=== PATIENT | male | born 1950 | race Caucasian/White ===

== ENCOUNTER 2020-04-06 10:14 | Outpatient (CLI) | payer MEDICARE, SELFPAY ==
--- NOTE | ~2020-04-06 | CT_ITS ---
EXAMINATION: CT abdomen pelvis w con EXAM DATE: 04/06/2020 10:48 INDICATION: Prostate cancer. Elevated PSA. TECHNIQUE: Spiral CT of the abdomen and pelvis was performed following intravenous injection of 100 m L Omnipaque 350. Axial, coronal and sagittal images were reviewed. The dose-length product (DLP) fo r this examination was 721.72 mGy-cm. The exposure was tailored according to patient size (auto mA e xposure control), and iterative reconstruction (ASIR) was used as additional dose reduction technique . There is no prior study for comparison. FINDINGS: The liver, spleen, adrenal glands and pancreas are unremarkable. Gallbladder is unremarkab le. No biliary obstruction. Chronically severely atrophic nonfunctioning right kidney. The left kid alfredo enhances normally and is without hydronephrosis. The prostate is unremarkable. Some diffuse johanna dder wall thickening, could indicate chronic cystitis. Acute cystitis not excludable. There is no re troperitoneal or pelvic lymphadenopathy. There is mild to moderate scattered arteriosclerotic disea se. Tiny umbilical fat-containing hernia. Small right inguinal fat-containing hernia. The appendix is normal. The stomach and small bowel are unremarkable. There is expected amount of c olonic stool. There is moderate sigmoid predominant colonic diverticulosis. There is no adjacent inf lammatory change to suggest diverticulitis. No free intraperitoneal gas. The heart is normal in si ze. There are no pericardial or pleural effusions. The lung bases are unremarkable. There are no o steoblastic or osteolytic lesions identified. IMPRESSION: 1. No evidence of metastatic disease. 2. Moderate sigmoid diverticulosis. Reviewed, dictated and finalized at location A.
[2020-04-06 10:41] LABS: Estimated Glomerular Filt Rate 60
== END 2020-04-06 10:15 | disposition home or self-care (01) ==
LOC: ANHIMG 10:22
PROVIDERS: PCP Family Medicine; Visit Provider Urology
DX: C61 Malignant neoplasm of prostate (principal); K57.30 Diverticulosis of large intestine without perforation or abscess without bleeding
CPT/HCPCS: 36415; 74177; Q9967

== ENCOUNTER 2020-05-22 11:01 | Outpatient (CLI) | payer MEDICARE, SELFPAY ==
--- NOTE | 2020-05-22 11:04 | ECG_ITS ---
Measurements Intervals [place] Rate: 53 P: 17 IA: 164 QRS: 13 QRSD: 94 T: 78 QT: 427 QTc: 404 Interpretive Statements SINUS BRADYCARDIA EXTENSIVE ANTERIOR MYOCARDIAL INFARCTION, PROBABLY RECENT ABNORMAL ECG Electronically Signed On 05-22-2020 11:21:15 CDT by Krishan Canales D.O.
== END 2020-05-22 11:02 | disposition home or self-care (01) ==
LOC: ANHSURGERY 11:04
PROVIDERS: PCP Family Medicine; Visit Provider Urology
DX: Z01.818 Encounter for other preprocedural examination (principal); C61 Malignant neoplasm of prostate; I10 Essential (primary) hypertension; R94.31 Abnormal electrocardiogram [ECG] [EKG]
CPT/HCPCS: 87086; 93005

== ENCOUNTER 2020-05-27 06:25 | Outpatient (CLI) | payer MEDICARE, SELFPAY ==
[2020-05-27 17:27] LABS: SARS-CoV-2 RNA PCR Negative
== END 2020-05-27 06:26 | disposition home or self-care (01) ==
LOC: ANHCOVIDDT 06:25
PROVIDERS: PCP Family Medicine; Visit Provider Urology
DX: Z01.812 Encounter for preprocedural laboratory examination (principal); Z11.59 Encounter for screening for other viral diseases
CPT/HCPCS: 87635; C9803; U0003

== ENCOUNTER 2020-05-30 02:32 | Day surgery (SDC) | payer MEDICARE, SELFPAY ==
[2020-05-19 16:18] VITALS: BMI 29.7
--- NOTE | 2020-05-30 11:25 | WPDHPUPDATE1 ---
History and Physical Update Update Date/Time: 05/30/20 11:25 History and Physical has been reviewed, including an updated exam of the patient. There are NO changes in the patient's condition. Risks, benefits, and alternatives have been discussed and questions answered. Patient agrees to proceed with procedure.
[2020-05-30] MEDS: LACTATED RINGERS 1,000 ML 30 ML IV CONT (12:50)
[2020-05-30 13:10] VITALS: BP 120/63; PULSE 52; RESP 20; TEMP 37; O2SAT 94
--- NOTE | 2020-05-30 13:16 | WPDANESEPPF ---
Anes - Initial Pre Proc Eval Procedure: Operation Date: 05/30/20 14:15 Proposed Procedures p Insertion SpaceOAR Hydrogel System - Morales Maynard MD Date/Time: 05/30/20 13:16 Surgeon: Morales Maynard MD Pre Op Diagnosis: prostate CA Patient Data Age: 69 Gender: M Height: 6 ft 1 in Weight: 91.4 kg Last Vital Signs Temp 37.0 C 05/30/20 13:10 Pulse 52 L 05/30/20 13:10 Resp 20 05/30/20 13:10 BP 120/63 05/30/20 13:10 Pulse Ox 94 05/30/20 13:10 Allergies Allergy/AdvReac Type Severity Reaction Status Date / Time No Known Allergies Allergy Unverified 05/30/20 12:39 Home Medications Medication Instructions Recorded Confirmed Type folic acid 1 mg tablet 1 mg PO DAILY #90 tablet 10/27/19 05/19/20 Rx atorvastatin 40 mg tablet 40 mg PO DAILY #90 tablet 03/09/20 05/19/20 Rx clopidogrel 75 mg tablet 75 mg PO DAILY #90 tablet 03/09/20 05/30/20 Rx isosorbide mononitrate 30 mg 30 mg PO DAILY #90 tablet 03/09/20 05/30/20 Rx tablet,extended release 24 hr metoprolol tartrate 100 mg tablet 100 mg PO BID #180 tablet 03/09/20 05/30/20 Rx pantoprazole 40 mg tablet,delayed 40 mg PO DAILY #90 tablet 03/09/20 05/19/20 Rx release ramipril 10 mg capsule 10 mg PO BID #180 cap 03/09/20 05/19/20 Rx ascorbate calcium (vitamin C) 500 mg PO DAILY 05/19/20 05/19/20 History aspirin [Adult Low Dose Aspirin] 81 mg PO DAILY 05/19/20 05/30/20 History cholecalciferol (vitamin D3) 50 mcg PO DAILY 05/19/20 05/19/20 History cyanocobalamin (vitamin B-12) 500 mcg PO DAILY 05/19/20 05/19/20 History Patient hx anesthesia problems: none Family hx anesthesia problems: none PMFSH Past Medical History Medical History CVA (cerebral vascular accident) Lumbar back pain with radiculopathy affecting left lower extremity Surgical History Surgical History Stented coronary artery Family History Family History Mother Family history of chronic obstructive pulmonary disease, Onset Age: 72 Social History Social History Smoking status: Heavy tobacco smoker Alcohol intake: current Anes - Eval Final PreProcedure Day of Procedure 05/30/20 13:16 Patient weight: overweight Heart: regular rate and rhythm Lungs: decreased breath sounds Airway: Mallampati scale class II Neurological: alert and oriented Last oral intake: >/= 8 hours ASA classification: III Emergent: no Anesthetic plan: proceed Anesthesia type and monitoring: general GIVS and standard monitoring Informed Consent: The patient's anesthetic plan and its attendant risks and benefits were discussed with the patient/family/POA. Questions were solicited and answers provided to the satisfaction of the patient/family/POA.
[2020-05-30] MEDS: ceFAZolin 2 GM/D5W 50 ML 2 GM/50 ML BAG IVPB (13:52)
--- NOTE | 2020-05-30 14:16 | PM.PROC ---
Procedure Note - Detailed Date of procedure: 05/30/20 Pre-op diagnosis: prostate CA Post-op diagnosis: same Procedure performed: Space oar Hydrogel placement with transrectal ultrasound guidance Description of procedure: Patient was taken the operative suite and correctly identified. Once anesthesia was obtained was placed in dorsal lithotomy position prepped draped in usual sterile fashion. Using ultrasound guidance the prostate was imaged both in the sagittal and transverse planes. The space Hydrogel was prepared as described in the manufacture's instructions for use. Under transrectal ultrasound guidance a 15 cm 18 gauge needle was inserted transperineal to the rectal urethralis muscle and the needle tip advanced to the yovani rectal fat posterior to the prostate. The needle position and downward double were confirmed in both sagittal and axial contreras. 3-5 cc of sterile saline was used to hydro dissect the space between the denonviellers fascia and anterior rectal wall. Aspiration did not yield any bleeding. With a needle tip in mid [place] in the axial field was viewed confirm the needle was not in the rectal wall. Movement of the needle tip without corresponding movement of the rectal wall confirm perirectal placement. The assembled [id number] Hydrogel system was then attached to the 18 gauge needle. Under ultrasound guidance continuous injection technique was used to dispense all 10 cc of the Hydrogel into this space between the prostate and rectum. Optimal visualization of the needle during Hydrogel administration was maintained at all times. No suspected penetration or compromise of the rectal wall occurred. He tolerated procedure well without any complications and was taken recovery room in stable condition. Anesthesia: GLMA Surgeon: Morales Maynard MD Drains: No Packing: No Pathology: none sent Complications: No immediate complications Condition: stable Disposition: PACU
[2020-05-30 14:17] VITALS: BP 88/63; PULSE 61; RESP 20; O2SAT 93
[2020-05-30 14:47] VITALS: BP 107/67; PULSE 56; RESP 20; O2SAT 92
[2020-05-30 15:14] VITALS: BP 120/83; PULSE 53; RESP 20
== END 2020-05-30 15:25 | disposition home or self-care (01) ==
PROVIDERS: PCP Family Medicine; Visit Provider Urology
PROC: (CPT 55874; principal; 2020-05-30 14:15)
DX: C61 Malignant neoplasm of prostate (principal); Z79.82 Long term (current) use of aspirin; Z79.02 Long term (current) use of antithrombotics/antiplatelets; Z86.73 Personal history of transient ischemic attack (TIA), and cerebral infarction without residual deficits; Z95.5 Presence of coronary angioplasty implant and graft; F17.200 Nicotine dependence, unspecified, uncomplicated
CPT/HCPCS: 55874; A9270; J0690; J1885; J2250; J2405; J2704; J3010; J7120

== ENCOUNTER 2020-06-07 11:11 | Outpatient (CLI) | payer MEDICARE, SELFPAY ==
--- NOTE | ~2020-06-07 | MR_ITS ---
EXAMINATION: MR pelvis wo/w con DATE: 06/07/2020 12:25 INDICATION: Malignant neoplasm of prostate. TECHNIQUE: Magnetic resonance imaging (MRI) of the pelvis was performed without and with 20 mL MultiH ance intravenous contrast. Sequences included axial and coronal FS FIESTA, coronal T2-weighted FS FSE , axial T2-weighted FSE, axial STIR FSE, coronal and axial LAVA, axial dual-echo T1-weighted FSPGR, a nd axial DWI. Postcontrast sequences included coronal LAVA-flex and a time course of axial LAVA. COMPARISON: CT abdomen and pelvis 04/06/2020 FINDINGS: There is diverticulosis of the colon without evidence of diverticulitis. The prostate is moderately e nlarged. There are areas of increased T1-weighted signal intensity in the prostate, likely hemorrhage from prior biopsy. There is trace pelvic ascites. There are no pathologically enlarged lymph nodes. There is a right inguinal hernia containing fat. There is no osseous metastatic disease. IMPRESSION: 1. No evidence of metastatic disease. Reviewed, dictated and finalized at location A.
[2020-06-07 11:44] LABS: Estimated Glomerular Filt Rate 60
== END 2020-06-07 11:12 | disposition home or self-care (01) ==
PROVIDERS: PCP Family Medicine; Visit Provider Radiology Radiation Oncology
DX: C61 Malignant neoplasm of prostate (principal)
CPT/HCPCS: 36415; 72197; A9577

== ENCOUNTER 2020-11-30 16:33 | Emergency (ER) | payer MEDICARE, SELFPAY ==
--- NOTE | ~2020-11-30 | CT_ITS ---
EXAMINATION: CT abdomen pelvis w con EXAM DATE: 11/30/2020 17:55 INDICATION: Left lower quadrant pain. Prostate cancer. TECHNIQUE: Spiral CT of the abdomen and pelvis was performed following intravenous injection of 100 m L Omnipaque 350. Axial, coronal and sagittal images were reviewed. The dose-length product (DLP) fo r this examination was 607.23 mGy-cm. The exposure was tailored according to patient size (auto mA e xposure control), and iterative reconstruction (ASIR) was used as additional dose reduction technique . Comparison is made to prior examination from 04/06/2020. FINDINGS: The liver, spleen, adrenal glands and pancreas are unremarkable. Gallbladder is unremarkab le. No biliary obstruction. Completely atrophic right kidney, chronic or congenital. Left kidney is unremarkable. There may be several radiation prostate seeds. Some diffuse bladder wall thickening with indistinct wall, could indicate chronic cystitis. Acute cystitis not excludable. There is no re troperitoneal or pelvic lymphadenopathy. There is moderate scattered arteriosclerotic disease. There is moderate sigmoid diverticulosis and mild diffuse sigmoid wall edema. Could be mild colitis o r uncomplicated diverticulitis. No abscess. The appendix is normal. The stomach and small bowel are unremarkable. There is expected amount of colonic stool. No free intraperitoneal gas. The heart is normal in size. There are no pericardial or pleural effusions. Dependent subsegmental atelectasi s. There are no osteoblastic or osteolytic lesions identified. Small right inguinal fat-containing h ernia. IMPRESSION: 1. Moderate sigmoid diverticulosis and mild wall thickening, colitis versus uncomplicated diverticul itis. Reviewed, dictated and finalized at location A. MANAGER IMPRESSION: 1. Moderate sigmoid diverticulosis and mild wall thickening, colitis versus un complicated diverticulitis.
[2020-11-30 16:39] VITALS: BP 182/99; PULSE 65; RESP 17; TEMP 36.5; O2SAT 100
[2020-11-30 16:42] VITALS: BP 182/99; O2SAT 100
[2020-11-30 16:47] VITALS: BP 172/99; O2SAT 98
--- NOTE | 2020-11-30 17:06 | ED.ABDPAIN ---
HPI - Abdominal Pain General Chief Complaint: Abdominal Pain Stated Complaint: stomach pain Time Seen by Provider: 11/30/20 16:35 Source: patient, family and old records reviewed Mode of arrival: ambulatory Limitations: no limitations History of Present Illness HPI narrative: Patient is a 70-year-old male who presents with 3 days duration of intermittent stabbing pain to the left upper abdomen nothing is made it better or worse denies vomiting nausea diarrhea rectal bleeding melena pain radiates around to the back. Patient was referred for rule out diverticulitis Related Data Home Medications Medication Instructions Recorded Confirmed ascorbate calcium (vitamin C) 500 mg PO DAILY 05/19/20 08/15/20 aspirin [Adult Low Dose Aspirin] 81 mg PO DAILY 05/19/20 08/15/20 cholecalciferol (vitamin D3) 50 mcg PO DAILY 05/19/20 08/15/20 cyanocobalamin (vitamin B-12) 500 mcg PO DAILY 05/19/20 08/15/20 Allergies Allergy/AdvReac Type Severity Reaction Status Date / Time No Known Allergies Allergy Verified 11/30/20 16:44 Review of Systems Review of Systems: All systems reviewed & are unremarkable except as noted in HPI and below PMFSH Past Medical History Medical History CVA (cerebral vascular accident) Lumbar back pain with radiculopathy affecting left lower extremity Prostate cancer Surgical History Surgical History Stented coronary artery Family History Family History Mother Family history of chronic obstructive pulmonary disease, Onset Age: 72 Social History Social History Smoking packs per day: 1 Smoking cigarettes per day: 20.0 Years smoked: 50 Smoking pack-years: 50.00 Smoking status: Current every day smoker Tobacco type: cigarettes Alcohol intake: current Drinks per week: 14 Gender identity (if verbalized by the patient): Male Exam Narrative: Exam Narrative: GENERAL: Well-appearing, well-nourished, and in no acute distress. HEAD: Normocephalic, atraumatic. EYES: PERRLA and EOMI. ENT: Nares clear, no rhinorrhea or epistaxis. Mucous membranes moist. CHEST: Clear to auscultation. No respiratory distress. No wheezes rales or rhonchi HEART: Regular rate and rhythm. No murmur heard. Normal peripheral pulses. ABDOMEN: Soft, left lower quadrant tenderness to palpation, nondistended EXTREMITIES: Normal range of motion. No edema. SKIN: Warm, dry, no rash. NEURO: No focal deficits. Alert and oriented x3. PSYCH: Normal mood and affect. Course Course Emergency Course: Patient in the room in no distress aware of case findings treatment plan diagnosis will be treated for diverticulitis no high risk changes in the blood work or imaging hydrated in the emergency department agreeing to follow with primary care for further evaluation Vital Signs Vital signs: Vital Signs Temperature 97.7 F 11/30/20 16:39 Pulse Rate 65 11/30/20 16:39 Respiratory Rate 17 11/30/20 16:39 Blood Pressure 182/99 H 11/30/20 16:39 Pulse Oximetry 100 11/30/20 16:39 Temperature 97.7 F 11/30/20 16:39 Pulse Rate 68 11/30/20 18:02 Respiratory Rate 17 11/30/20 16:39 Blood Pressure 172/98 H 11/30/20 18:02 Pulse Oximetry 97 11/30/20 18:02 MDM - Abdominal Pain MDM Narrative Medical decision making narrative: Patient with likely uncomplicated diverticulitis will be sent home with medications advised to follow-up with his primary care given reasons to return Lab Data Result diagrams: 11/30/20 17:00 11/30/20 17:00 Labs: Lab Results 11/30/20 11/30/20 11/30/20 Range/Units 17:00 17:00 18:12 WBC 8.3 (4.5-10.0) K/mm3 RBC 3.98 L (4.6-6.20) M/mm3 Hgb 14.5 (14.0-18.0) g/dL Hct 41.9 L (42.0-52.0) % MCV 105.3 H
[2020-11-30 17:07] LABS: Basophils Percent Auto 0.4 % (0.2-1.2); Eosinophils Absolute Auto 0.1 K/mm3 (0-0.3); Hematocrit 41.9 % (42.0-52.0); Hemoglobin 14.5 g/dL (14.0-18.0); Immature Granulocyte Absolute 0.03 K/mm3 (0.00-0.031); Immature Granulocyte Percent A 0.4 % (0-0.5); Lymphocytes Absolute Auto 1.41 K/mm3 (0.9-3.2); Lymphocytes Percent Auto 16.9 % (18.3-44.2); Mean Corpuscular HGB Conc 34.6 g/dl (32-36); Mean Corpuscular Hemoglobin 36.4 pg (26-34); Mean Corpuscular Volume 105.3 fl (80-100); Mean Platelet Volume 10.2 fl (7.4-10.4); Monocytes Absolute Auto 0.7 K/mm3 (0.1-0.6); Monocytes Percent Auto 8.8 % (2.6-8.5); Neutrophils Percent Auto 72.5 % (45.5-73.1); Platelet Count Result 182 k/mm3 (150-375); Red Blood Count 3.98 M/mm3 (4.6-6.20); Red Cell Distribution Width 12.2 % (11.5-14.5); White Blood Count 8.3 K/mm3 (4.5-10.0)
[2020-11-30 17:18] LABS: Alanine Aminotransferase 31 U/L (4-50); Albumin Level 3.5 g/dL (3.5-5.1); Alkaline Phosphatase 54 U/L (38-126); Anion Gap 4 mmol/L (8-16); Aspartate Amino Transferase 38 U/L (17-59); Bilirubin,Total 0.6 mg/dL (0.2-1.3); Blood Urea Nitrogen 9 mg/dL (9-20); Calcium 8.2 mg/dL (8.4-10.2); Carbon Dioxide 34 mmol/L (22-30); Chloride 103 mmol/L (98-107); Estimated CRCL calculation 65 ml/min; Estimated Glomerular Filt Rate > 60; Glucose 120 mg/dL (75-110); Lipase 107 U/L (23-300); Potassium 3.6 mmol/L (3.4-5.0); Sodium 141 mmol/L (137-145)
[2020-11-30 17:59] VITALS: BP 170/107; O2SAT 98
[2020-11-30 18:02] VITALS: BP 172/98; PULSE 68; O2SAT 97
[2020-11-30] MEDS: ONDANSETRON INJ 4 MG/2 ML VIAL IV PUSH (18:03)
[2020-11-30] MEDS: FAMOTIDINE 20 MG/2 ML VIAL IV PUSH (18:03)
[2020-11-30] MEDS: SODIUM CHLORIDE 0.9% IV 1,000 ML 999 ML IV CONT (18:03)
[2020-11-30 18:36] LABS: Add Urine Microscopic? YES; Appearance Urine Clear (Clear); Bilirubin Urine Negative (Negative); Blood Urine Negative (Negative); Color Urine Yellow (Yellow); Glucose Urine UA Negative (Negative); Ketones Urine Negative (Negative); Leukocyte Esterase Ur Negative LEU/UL (Negative); Mucus Urine Rare /lpf; Nitrate Urine Negative (Negative); Protein Urine Negative (Negative); RBC Urine 0-2 /hpf (0-2); Urobilinogen Urine Negative mg/dL (<2.0); WBC Urine 0-3 /hpf
[2020-11-30 18:38] LABS: Specific Grav Ur 1.053 (1.001-1.035)
[2020-11-30 18:48] LABS: Bacteria Urine Trace /hpf
[2020-11-30 19:35] VITALS: BP 145/86; PULSE 55; RESP 14; O2SAT 95
== END 2020-11-30 19:35 | disposition home or self-care (01) ==
PROVIDERS: Emergency Medicine Emergency Medical Services; Emergency Provider Emergency Medicine; PCP Family Medicine
DX: K57.90 Diverticulosis of intestine, part unspecified, without perforation or abscess without bleeding (principal); F17.210 Nicotine dependence, cigarettes, uncomplicated; Z86.73 Personal history of transient ischemic attack (TIA), and cerebral infarction without residual deficits; Z85.46 Personal history of malignant neoplasm of prostate; Z95.5 Presence of coronary angioplasty implant and graft
CPT/HCPCS: 36415; 74177; 80053; 81001; 83690; 85025; 96361; 96365; 96375; 99284; J0131; J2405; J7030; Q9967

== ENCOUNTER 2021-03-05 12:59 | Outpatient (CLI) | payer MEDICARE, SELFPAY | END 2021-03-05 13:00 | disposition home or self-care (01) | LOC: ANHCOVIDVC 12:59 | PROVIDERS: PCP Family Medicine | DX: Z23 Encounter for immunization (principal) | CPT/HCPCS: 0001A; 91300 ==

== ENCOUNTER 2021-03-26 13:00 | Outpatient (CLI) | payer MEDICARE, SELFPAY | END 2021-03-26 13:01 | disposition home or self-care (01) | LOC: ANHCOVIDVC 13:00 | PROVIDERS: PCP Family Medicine | DX: Z23 Encounter for immunization (principal) | CPT/HCPCS: 0002A; 91300 ==

== ENCOUNTER 2022-02-19 12:02 | Emergency (ER) | payer MEDICARE, SELFPAY ==
[2022-02-19 12:18] VITALS: BP 125/87; PULSE 75; RESP 18; TEMP 36.4; O2SAT 98
--- NOTE | 2022-02-19 12:24 | ED.LOWEXIN ---
HPI - Extremity Injury (Lower) General Chief Complaint: Extremity Injury, Lower Stated Complaint: Right Hip Pain Time Seen by Provider: 02/19/22 12:23 History of Present Illness HPI Narrative: 71-year-old male presented emergency room with complaints of radiated pain radiates into his knee. Patient states pain is been present since Friday. Patient also reports that he was performing yard work prior to the onset of his pain. Patient states the pain today is similar to his chronic left-sided sciatica pain. Pain is worse with movement and twisting. Denies saddle anesthesia. Denies injury or trauma Related Data Home Medications Medication Instructions Recorded Confirmed ascorbate calcium (vitamin C) 500 mg PO DAILY 05/19/20 02/12/22 aspirin [Adult Low Dose Aspirin] 81 mg PO DAILY 05/19/20 02/12/22 cyanocobalamin (vitamin B-12) 500 mcg PO DAILY 05/19/20 02/12/22 cholecalciferol (vitamin D3) 50 4,000 unit PO DAILY tablet 08/15/21 02/12/22 mcg (2,000 unit) tablet Allergies Allergy/AdvReac Type Severity Reaction Status Date / Time No Known Allergies Allergy Verified 02/12/22 14:01 Review of Systems Review of Systems: CONSTITUTIONAL: Denies fever, chills, or sweats. EYES: Denies visual changes, redness, or discharge. ENT: Denies rhinorrhea, congestion, sore throat, or otalgia. CARDIOVASCULAR: Denies chest pain, palpitations, or edema. RESPIRATORY: Denies cough or dyspnea. GASTROINTESTINAL: Denies abdominal pain, nausea, vomiting, or diarrhea. GENITOURINARY: Denies dysuria or hematuria. SKIN: Denies rash or itching. MUSCULOSKELETAL: Reports back pain NEUROLOGIC: Denies headache, numbness, dizziness, or weakness. PSYCHIATRIC: Denies anxiety or depression. [facility] Past Medical History Medical History BMI 25.0-25.9,adult BMI 26.0-26.9,adult CVA (cerebral vascular accident) Elevated prostate specific antigen less than 10 ng/ml Leukocytosis Overweight (BMI 25.0-29.9) Prostate cancer Radiation induced proctitis Sebaceous cyst (~10/30/20) left pre-auricular, 1.5 cm Surgical History Surgical History H/O eye surgery Stented coronary artery Family History Family History Mother Family history of chronic obstructive pulmonary disease, Onset Age: 72 Social History Social History Smoking packs per day: 0.5 Smoking cigarettes per day: 10.0 Years smoked: 50 Smoking pack-years: 25.00 Smoking status: Current every day smoker Tobacco type: cigarettes Alcohol intake: current Drinks per week: 14 Gender identity (if verbalized by the patient): Male Exam Narrative: GENERAL: Well-appearing, well-nourished, and in no acute distress. HEAD: Normocephalic, atraumatic. EYES: PERRLA and EOMI. ENT: Nares clear, no rhinorrhea or epistaxis. Mucous membranes moist. NECK: Supple. No adenopathy or masses. No carotid bruits or JVD CHEST: Clear to auscultation. No respiratory distress. No wheezes rales or rhonchi HEART: Regular rate and rhythm. No murmur heard. Normal peripheral pulses. ABDOMEN: Soft, nontender, nondistended, normal active bowel sounds. EXTREMITIES: Normal range of motion. No edema. BACK: Tenderness to the right SI joint. Negative pain with right leg extension. LROM with bend and rotation. No midline tenderness. No bony abnormality. SKIN: Warm, dry, no rash. NEURO: No focal deficits. Alert and oriented x3. PSYCH: Normal mood and affect. Course Vital Signs Vital signs: Vital Signs Temperature 36.4 C L 02/19/22 12:18 Pulse Rate 75 02/19/22 12:18 Respiratory Rate 18 02/19/22 12:18 Blood Pressure 125/87 02/19/22 12:18 Pulse Oximetry 98 02/19/22 12:18 Temperature 36.4 C L 02/19/22 12:18 Pulse Rate 75 02/19/22 12:18 Respiratory Rate 1
== END 2022-02-19 13:08 | disposition home or self-care (01) ==
LOC: ANHED 12:53
PROVIDERS: Emergency Provider Nurse Practitioner Family; PCP Family Medicine
DX: M46.1 Sacroiliitis, not elsewhere classified (principal); M54.41 Lumbago with sciatica, right side; Z86.73 Personal history of transient ischemic attack (TIA), and cerebral infarction without residual deficits; Z85.46 Personal history of malignant neoplasm of prostate; E66.3 Overweight; Z68.25 Body mass index [BMI] 25.0-25.9, adult; Z95.5 Presence of coronary angioplasty implant and graft; F17.210 Nicotine dependence, cigarettes, uncomplicated
CPT/HCPCS: 96372; 99283; J1100

== ENCOUNTER 2023-05-07 15:30 | Outpatient (CLI) | payer MEDICARE, SELFPAY ==
--- NOTE | ~2023-05-07 | US_ITS ---
CORRECTED REPORT CORRECTION TO DATE OF EXAM SEE BOLDED DATE BELOW 05/12/23 PK This report was recreated on __05/12/23 . Original report was signed by Jj Srinivasan M.D. on 05/09/2023 9:13 CDT .EXAMINATION: US renal BI DATE: 05/07/2023 08:37 Clinical History: Chronic kidney disease Technique: Real-time sonographic imaging of the kidneys and urinary bladder was performed. Findings: The right kidney is not visualized. The left kidney measures 11.3 cm. There is no left hydronephrosis or renal calculus identified. Renal cortical echogenicity is within normal limits. No left renal mass lesion is identified. The urinary bladder is partially distended at the time of this exam. No intraluminal echoes are identified. No abnormal wall thickening is seen. Left ureteral jet visualized. Right ureteral jet not seen. Impression: Left kidney and urinary bladder unremarkable. Right kidney not visualized. Reviewed, dictated and finalized at location A. MTDD Impression: Left kidney and urinary bladder unremarkable. Right kidney not visualized.
--- NOTE | ~2023-05-07 | US_ITS ---
US art doppler w press LE BI INDICATION: Peripheral arterial disease TECHNIQUE: Segmental pressures and plethysmographic and Doppler waveforms of the brachial and lower e xtremity arteries were obtained. COMPARISON: None. FINDINGS: Right and left brachial artery pressures of 111 mm Hg and 102 mm Hg, respectively, are concordant (no rmal difference <= 30 mmHg). The right ankle-brachial index (ERIN) is 1.16 (normal >= 0.9-1.0). The right great toe-brachial index (TBI) is 0.8 (normal >= 0.60). The left ERIN is 1.19. The left TBI is 0.97. IMPRESSION: 1. Normal bilateral ankle and toe brachial indices. Reviewed, dictated and finalized at location L.
== END 2023-05-07 15:31 | disposition home or self-care (01) ==
LOC: ANHIMG 15:31
PROVIDERS: PCP Family Medicine; Visit Provider Internal Medicine Nephrology
DX: I12.9 Hypertensive chronic kidney disease with stage 1 through stage 4 chronic kidney disease, or unspecified chronic kidney disease (principal); N18.31 Chronic kidney disease, stage 3a; I73.9 Peripheral vascular disease, unspecified
CPT/HCPCS: 76775; 93923

== ENCOUNTER 2024-03-15 08:12 | Outpatient (CLI) | payer MEDICARE, SELFPAY ==
--- NOTE | 2024-03-23 18:26 | WPDSLEEPSTUD ---
Sleep Study Date of Study: 03/15/24 Ordering Provider: Akira Ruiz MD Interpreting Physician: Mouna Vasquez DO Sleep Study Type: Split Polysomnogram Height: 1.85 m Weight: 97.522 kg Body Mass Index: 28.3 Neck Circumference (inches): 18 Shedd: 9 Reason for Sleep Study Daytime hypersomnia Sleep History The patient is a 73-year-old male with atrophic nonfunctioning right kidney, congestive heart failure, history of CVA, peripheral neuropathy, polycythemia, history of prostate cancer, GERD and current tobacco use that had a sleep study ordered by his primary care physician for evaluation of sleep apnea. The patient denies awakening from sleep short of breath. He denies awakening at night with heartburn, belching or cough. He denies snoring. He denies having trouble sleeping when he has a cold. He denies waking up gasping for air throughout the night. He denies having breathing problems at night observed by himself or others. He denies sweating excessively at night. He denies having heart palpitations or irregular heartbeats during the night. He denies falling asleep while driving. He denies sleep paralysis, cataplexy and hypnagogic / hypnopompic hallucinations. He denies having trouble at school or work due to sleepiness. He denies feeling afraid of going to sleep. He rarely has nightmares. He occasionally remembers his dreams. He rarely has thoughts racing through his mind. He rarely feels sad or depressed. He occasionally has anxiety. He rarely has muscular tension. He denies noticing parts of his body jerk. He rarely kicks during the night. He rarely has crawling and aching feelings in his legs and rarely experiences leg pain during the night. He use to grind his teeth during sleep but is unsure about it now. He denies awakening with morning jaw pain. He is occasionally bothered by pain during the day but rarely awakened by pain during the night. He rarely wakes up feeling stiff in the morning. He denies waking up with sore or achy muscles. He rarely wakes up with pain in the neck, spine and other joints. He goes to bed at midnight on both weekdays and weekends. It takes him 5-10 minutes to fall asleep. He wakes up once at most throughout the night to urinate and then smokes cigarettes. He wakes up at 9:00 a.m. on both weekdays and weekends. He typically gets 8-9 hours of sleep per night. He will stay in bed for 5 minutes after waking up in the morning. He currently lives alone. He denies consuming any caffeinated beverages within 2 hours of bedtime. He denies engaging in physical exercise before bedtime. He will read and watch television before falling asleep. He will take naps in the afternoon or the evening. He consumes 1 cup of coffee and 1 large frozen soda per day. He currently smokes half a pack of cigarettes per day. He consumes 2-3 shots of hard liquor daily. He denies recreational drug use PMFSH Past Medical History Medical History At moderate risk for fall (~07/2022) Atrophy of right kidney (~2019) completely atrophic nonfunctioning right kidney 2019 CT. Renal ultrasound 05/09/2023 with right kidney not visualized and normal left kidney and urinary bladder. BMI 25.0-25.9,adult BMI 26.0-26.9,adult BMI 27.0-27.9,adult CHF (congestive heart failure) CVA (cerebral vascular accident) Eczema Elevated prostate specific antigen less than 10 ng/ml Hypersomnia Hyponatremia Sodium 127 with chloride 91 on 07/31/2022. sodium 134 on 02/12/2023. Sodium normal at 138 on 02/04/2024. Leukocytosis Overweight (BMI 25.0-29.9) Peripheral neuropathy neuropathy in the feet. Polycythemia (02/04/24) hemoglobin 18.1,( increased from 15.1) 02/04/2024 Prostate cancer Treated with radiation treatment only Radiation induced proctitis Renal insufficiency The BUN 11 with creatinine 1.68 with GFR 43 on 07/31/2022. BUN 11, creatinine 1.63 with GFR 4
[2024-03-23 18:27] VITALS: BMI 28.3
== END 2024-03-16 06:45 | disposition home or self-care (01) ==
LOC: ANHCSM 08:12
PROVIDERS: PCP Family Medicine; Visit Provider Family Medicine
DX: G47.33 Obstructive sleep apnea (adult) (pediatric) (principal); G47.10 Hypersomnia, unspecified
CPT/HCPCS: 95811

== ENCOUNTER 2024-05-12 09:23 | Outpatient (CLI) | payer MEDICARE, SELFPAY ==
--- NOTE | ~2024-05-12 | XR_ITS ---
XR hip RT 2V w AP pelvis Ordering provider: Akira Ruiz MD History: . M25.551 - Pain in right hip NEW ONSET NON INJ X 10 DAYS . Comparison: None. FINDINGS: BONES: No acute fracture or dislocation. HIP JOINT SPACES: Normal. SACROILIAC JOINT SPACES/LUMBAR SPINE: The sacroiliac joint spaces are normal. Mild degenerative zapata es of the visualized lower lumbar spine. PUBIC SYMPHYSIS: Normal. SOFT TISSUES: Normal. IMPRESSION: No acute osseous abnormality pelvis and right hip. Reviewed, dictated and finalized at location A.
== END 2024-05-12 09:24 | disposition home or self-care (01) ==
PROVIDERS: PCP Family Medicine; Visit Provider Family Medicine
DX: M25.551 Pain in right hip (principal); M25.552 Pain in left hip
CPT/HCPCS: 73502

== ENCOUNTER → 2025-09-05 14:00 | Outpatient (CLI) | payer MEDICARE, SELFPAY ==
--- NOTE | ~2025-09-05 | XR_ITS ---
EXAMINATION: XR foot LT min 3V, 09/05/2025 14:08 CDT HISTORY: M79.672 - Pain in left foot, GREAT TOE COMPARISON: No comparisons available. Findings: No acute fracture or malalignment. No significant degenerative changes. Soft tissues unremarkable. Impression: No acute fracture or malalignment. Reviewed, dictated and finalized at location P. Impression: No acute fracture or malalignment.
--- OUTSIDE RECORDS SUMMARY | 2025-09-05 15:12 | XMS_ITS | Clinical Summary ---
Author Organization [facility] Address [address] [place] [id number] Care Team Providers Care Emergency Room Technician Name Role Phone Akira Ruiz MD Primary Care Provider [phone] Allergies No known active allergies Medications isosorbide mononitrate ER (IMDUR) 30 mg 24 hr tablet Take 1 tablet (30 mg total) by mouth daily 02/29/[address] (PROTONIX) 40 mg EC tablet Take 1 tablet (40 mg total) by mouth daily 05/16/20 Active folic acid (FOLVITE) 800 mcg tablet Take 1 tablet (800 mcg total) by mouth daily Active CHOLECALCIFEROL , VITAMIN D3, ORAL Take 50 mcg by mouth daily Active cyanocobalamin (Vitamin B-12) 1,000 mcg tabletIndicatio ns:Prevention of Vitamin B12 Deficiency Take 5 tablets (5,000 mcg total) by mouth daily Active ascorbic acid (VITAMIN C) 1,000 mg tablet Take 1 tablet (1,000 mg total) by mouth daily Active fluocinonide (LIDEX) 0.05 % gel Apply topically as needed Active buPROPion SR (ZYBAN) 150 mg 12 hr tablet Take 1 tablet (150 mg total) by mouth 2 (two) times a day 60 tablet 3 11/05/20 Active Additional Information Patient not taking.Reported on 11/10/2024 UNABLE TO FIND B1 Activ e ferrous sulfate 325 mg (65 mg of elemental iron) tabletIndicatio ns:Iron Deficiency Anemia Take 1 tablet (65 mg of elemental iron total) by mouth daily Active ezetimibe (ZETIA) 10 mg tablet Take 1 tablet (10 mg total) by mouth daily 30 tablet 11 11/10/20 24 025 Active clopidogreL (PLAVIX) 75 mg tablet Take 1 tablet (75 mg total) by mouth daily 90 tablet 11 11/10/20 24 025 Active sacubitriL-vals chris (Entresto) 49-51 mg tablet TAKE 1 TABLET TWICE A DAY 180 tablet 2 12/31/19 25 Active atorvastatin (LIPITOR) 80 mg tablet TAKE 1 TABLET NIGHTLY 90 tablet 2 02/22/20 25 Active carvediloL (COREG) 12.5 mg tablet TAKE 1 TABLET BY MOUTH TWICE A DAY WITH FOOD 180 tablet 2 03/24/20 25 Active empagliflozin (Jardiance) 10 mg tablet TAKE 1 TABLET DAILY 90 tablet 08/18/20 25 Active empagliflozin (Jardiance) 10 mg tablet Take 1 tablet (10 mg total) by mouth daily 90 tablet 2 12/28/19 25 025 Discontinued Active Problems Problem Noted Date Diagnosed Date Coronary artery disease invo lving [place] coronary artery of [place] heart without angina pectoris 02/19/2023 Overview (02/19/2023): Added automatically from request for surgery [id number] Surgical History Surgery Date Site/Laterality Comments CORONARY STENT PLACEMENT 11/24/2003 - 11/23/2004 Coronary Stent Placement ANKLE SURGERY Ankle surgery CORONARY ANGIOPLASTY ANKLE SURGERY Medical History Medical History Date Comments Cardiovascular disease Coronary Artery Disease Myocardial infarction (HCC) Myoc ardial infarction Hx Other Medical Cardiomyopathy Hypertension Hypertension Hx Other Medical dyslipidemia Hx Other Medical Tobacco use Hyperlipidemia Acid indigestion Cancer (HCC) Stroke (HCC) Prostate cancer (HCC) GERD (gastroesophageal reflux disease) Chronic kidney disease pt states he only has one working kidney Family History Medical History Relation Name Comments GI bleed Mother Relation Name Status Comments Mother (Age 82) Social History Tobacco Use Types Packs/Day Years Used Date Smoking Tobacco: Every Day Cigarettes Smokeless Tobacco: Never Tobacco Cessation:Ready to Q uit: Not Asked; Counseling Given: Not Answered Comments:Smoking History Packs/day: 1 Packs Alcohol Use Standard Drinks/Week Comments Yes 0 (1 standard drink = 0.6 oz pur e alcohol) Personal Safety Answer Date Recorded Have you ever been in or are you currently in a harmful physical or emotional relationship or is someone making you feel afraid or unsafe? 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42 11/10/2024 2:06 PM BLACKING WHEEL TENDER Plan of Treatment Health Maintenance Due Date Last Done Comments Colon Cancer Screening-Colonoscopy 1950 Depression Screening 1950 Hepatitis C Screening 1950 DTaP/Tdap/Td Vaccine (1 - Tdap) 1963 Hepatitis B Screening 1970 Zoster Vaccine (1 of 2) 2002 Abdominal Aortic Aneurysm (A AA) Screen 2017 Well Visit 65+ 2017 Fall Risk Assessment 03/21/2024 03/21/2023 Influenza Vaccine (#1) 2025 9, 08/25/2018, 08/13/2017 Pneumococcal vaccine 65+ Completed 05/11/2019, 03/24 Medical Devices Implanted Type Area Guest Services Representative Device Identifier Shelf Expiration Date Model / Serial / Lot Pouring Pounds Device Closure Vascade Od5 Fr Femoral Artery [id number] - [id number] Implanted:Qty: 1 on 03/21/2023 by Dax Kumar MD at [facility] 05/03/2023 [id number] / / [id number] Insurance Member Subscriber Plan / Payer (Ef fective 2021-Present) Name:Yair Thibodeaux Relation to Subscriber:Self Name:Yair Thibodeaux Payer ID:[id number] Group ID:[id number] Type:COMMERCIAL Address: [address] [place] [address] MEDICARE COMMERCIAL GENERIC Member Subscriber Plan / Payer (Ef fective 2021-Present) Name:Yair Thibodeaux Relation to Subscriber:Self Name:Yair Thibodeaux Payer ID:[id number] Group ID:[id number] Type:COMMERCIAL Address: [address] [place] [address] Care Teams Emergency Room Technician Relationship Specialty Start Date End Date Akira Ruiz MD [address] [address] PCP - General 01/25/14
--- OUTSIDE RECORDS SUMMARY | 2025-09-05 15:12 | XMS_ITS | Clinical Summary ---
Author Organization [facility] Address [facility] [place] [address] Care Team Providers Care Nutrition Educator Name Role Phone Unavailable Primary Care Provider Unavailabl e Social History Tobacco Use Types Packs/Day Years Used Date Smoking Tobacco: Never Assessed Sex and Gender Information Value Date Recorded Sex Assigned at Not on file Legal Sex Male 5:01 PM CDT Gender Identity Not on file Sexual Orientation Not on file Plan of Treatment Health Maintenance Due Date Last Done Comments Colorectal Cancer Screening Colonoscopy (10 Years) 1952 Hepatitis C 1970 DTaP, Tdap and Td Vaccines ( 1 - Tdap) 1971 Pneumococcal Vaccine: 50+ Ye ars (1 of 1 - PCV) 2002 Zoster Vaccines (1 of 2) 2002 COVID-19 Vaccine (1 - 2023-2 5 season) 2025 Influenza Adult (#1) 2025 RSV Immunization or 60+ Years (1 - 1-dose 75+ series) 2027 Meningococcal B Vaccine Aged Out No l onger eligible based on patient's age to complete this topic Meningococcal Vaccine Aged Out No jethro dileep eligible based on patient's age to complete this topic RSV Immunizations Under 20 Months Aged Out No longer eligible based on patient's age to complete this topic
== END ==
LOC: EXPTRAD 14:02
PROVIDERS: PCP Family Medicine; Referring Provider Family Medicine; Visit Provider Family Medicine
DX: M79.672 Pain in left foot (principal); G89.29 Other chronic pain
CPT/HCPCS: 73630